=== PATIENT | female | born 1985 | race African-American/Black ===

== ENCOUNTER 2019-11-26 21:57 | Emergency (ER) | payer OTHER, SELFPAY ==
[2019-11-26 22:02] VITALS: BP 126/68; PULSE 86; RESP 16; TEMP 36.6; O2SAT 100
--- NOTE | 2019-11-26 23:47 | ED.NECK ---
HPI - Neck Pain/Injury General Chief Complaint: Neck Pain/Injury Stated Complaint: neck pain Time Seen by Provider: 11/26/19 23:25 Source: patient and RN notes reviewed Mode of arrival: ambulatory Limitations: no limitations History of Present Illness HPI Narrative: Pt is a 34 y/o female presenting to the ED c/o neck pain. Pt reports she woke up this morning with some mild neck pain. Pt states she went to picker her 9 month old son about 30 minutes later and immediately experienced shooting neck pain radiating to her rt shoulder. Pt states she has been taking 800 mg Ibuprofen and applying heat to no effect on her pain. Pt notes she is currently getting over the flu, noting she has nasal congestion. 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 Pt states she smoked 0.5 ppd and also smokes marijuana. Onset (ago): unknown (This morning) Place: home Radiation: right lateral Associated symptoms: none Treatments prior to arrival: ibuprofen Related Data Allergies Allergy/AdvReac Type Severity Reaction Status Date / Time No Known Allergies Allergy Unverified 01/27/19 12:36 Review of Systems Review of Systems: All systems reviewed & are unremarkable except as noted in HPI and below ENT: Reports nasal congestion Musculoskeletal: Musculoskeletal: Reports neck pain (Rt sided radiating to shoulder) PMFSH Past Medical History Medical History Post- depression Surgical History Surgical History H/O tubal ligation Social History Social History Smoking packs per day: 0.5 Smoking cigarettes per day: 10.0 Smoking status: Current every day smoker Substance use: current Substance use type: marijuana Exam Const: General: cooperative, no acute distress and alert Nutritional Appearance: well nourished Orientation/consciousness: patient oriented x3 Limitations: no limitations HENMT: Mouth: Yes lip normal Neck: Neck: tender (Tenderness and spasms of rt sided cervical muscles) Resp: Effort & Inspection: normal respiratory effort Skin: General skin exam: normal color Neuro: General: patient oriented x3 Cognition (Neuro): normal cognition Speech: normal speech Extrem: General: normal to inspection and full ROM Psych: Mental Status: mental status grossly normal Affect: normal affect Attitude: cooperative Course Course Emergency Course: Patient with torticollis. Will prescribe Valium and advised to continue taking ibuprofen. Advised to follow-up with her primary care physician for further care, especially if not improving. Vital Signs Vital signs: Vital Signs Temperature 97.9 F 11/26/19 22:02 Pulse Rate 86 11/26/19 22:02 Respiratory Rate 16 11/26/19 22:02 Blood Pressure 126/68 11/26/19 22:02 Pulse Oximetry 100 11/26/19 22:02 Temperature 97.9 F 11/26/19 22:02 Pulse Rate 74 11/27/19 00:44 Respiratory Rate 18 11/27/19 00:44 Blood Pressure 118/84 11/27/19 00:44 Pulse Oximetry 97 11/27/19 00:44 Critical Care Time Critical Care Time Critical Care Time: No Discharge Plan Discharge Clinical Impression: Torticollis Patient Disposition: Home, Self-Care Condition: Stable Instructions: Spasmodic Torticollis (ED) Additional Instructions: May take acetaminophen 1000 mg every 6 hours as needed for pain. May take your prescription ibuprofen 800 mg every 8 hours as needed for pain. May take Valium as prescribed for muscle spasm. May try heat and/or ice for relief of symptoms. Follow-up with primary care physician for further care. You can discuss referral to physical therapy if symptoms or not improving. Prescriptions: New diazepam 5 mg tablet 5 mg PO Q6-8H PRN (Reason: muscle spasm) Qty: 15 RF: 0 Follow-up/Referrals: UNKNOWN
[2019-11-27 00:44] VITALS: BP 118/84; PULSE 74; RESP 18; O2SAT 97
== END 2019-11-27 00:47 | disposition home or self-care (01) ==
PROVIDERS: Emergency Provider Emergency Medicine
DX: M43.6 Torticollis (principal); F17.210 Nicotine dependence, cigarettes, uncomplicated
CPT/HCPCS: 99283

== ENCOUNTER 2020-05-15 13:47 | Emergency (ER) | payer OTHER, SELFPAY ==
[2020-05-15 13:59] VITALS: BP 125/87; PULSE 84; RESP 16; O2SAT 99
--- NOTE | 2020-05-15 14:17 | ED.SKABFB ---
HPI - Skin/Abscess/Foreign Bdy General Chief complaint: Skin/Abscess/Foreign Body Stated complaint: rash bilateral hands Time Seen by Provider: 05/15/20 14:01 Source: patient and RN notes reviewed Mode of arrival: ambulatory Limitations: no limitations History of Present Illness HPI narrative: Patient presents today with a one-month history of pruritic and severely painful rash to bilateral hands. Left hand is worse than the right. Denies additional symptoms or recent illness. States the rash drain is clear fluid from blisters. She has tried Benadryl cream, Lotrimin, triamcinolone. She has also been wearing plastic gloves to keep moisture in her hands. No new household products. MD complaint: rash Related Data Home Medications Medication Instructions Recorded Confirmed sertraline 50 mg PO DAILY 05/15/20 05/15/20 Allergies Allergy/AdvReac Type Severity Reaction Status Date / Time No Known Allergies Allergy Verified 05/15/20 13:50 Review of Systems Review of Systems: Narrative: CONSTITUTIONAL: Denies body aches, fever, chills, or sweats. EYES: Denies visual changes, redness, or discharge. ENT: Denies rhinorrhea, congestion, sore throat, or otalgia. CARDIOVASCULAR: Denies chest pain, palpitations, or edema. RESPIRATORY: Denies cough or dyspnea. GASTROINTESTINAL: Denies abdominal pain, nausea, vomiting, or diarrhea. GENITOURINARY: Denies dysuria or hematuria. SKIN: + Bilateral hand rash MUSCULOSKELETAL: Denies back pain, joint pain, or myalgia. NEUROLOGIC: Denies headache, numbness, tingling, or weakness. PSYCH: Denies depression or anxiety. [facility] Past Medical History Medical History (Updated 05/15/20 @ 14:24 by Dalia Pierre, [facility], ) Anxiety Post- depression Surgical History Surgical History H/O tubal ligation Social History Social History Smoking packs per day: 0.5 Smoking cigarettes per day: 10.0 Smoking status: Current every day smoker Substance use: current Substance use type: marijuana Gender identity (if verbalized by the patient): Female Comments At time of signature, I have reviewed and agree with nursing past medical, surgical, social and family history unless otherwise noted. Please see nursing chart for further information. There is no relevant family history pertinent to the presenting complaint Exam Narrative: Exam Narrative: GENERAL: Well-appearing, well-nourished, and in no acute distress. HEAD: Normocephalic, atraumatic. EYES: EOMI. No redness or drainage. Conjunctivae normal. ENT: Mucous membranes pink and moist. NECK: Normal AROM. CHEST: No respiratory distress. Clear to auscultation. HEART: Regular rate and rhythm. No murmur appreciated. Normal peripheral pulses. EXTREMITIES: Normal range of motion. No edema. SKIN: Warm, dry. Capillary refill normal. Normal skin turgor. Deep seated painful vesicles, many of which have ruptured at the skin surface and are draining clear fluid. patient has these small vesicles spread circumferentially around most fingers, as well as bilateral palms, left greater than right. No erythema, induration, purulent discharge on either hand or fingers. Distal sensation intact. Capillary refill normal. Full AROM of all fingers. NEURO: No focal deficits. Alert and oriented x3. Gait steady. PSYCH: Normal affect. No signs of depression or anxiety. Course Vital Signs Vital signs: Vital Signs Pulse Rate 84 05/15/20 13:59 Respiratory Rate 16 05/15/20 13:59 Blood Pressure 125/87 05/15/20 13:59 Pulse Oximetry 99 05/15/20 13:59 Pulse Rate 84 05/15/20 13:59 Respiratory Rate 16 05/15/20 13:59 Blood Pressure 125/87 05/15/20 13:59 Pulse Oximetry 99 05/15/20 13:59 Reviewed. Pt has been instructed to follow up with her PCP regarding her elevated blood pressure today. MDM - Skin/Abscess/Foreign Bdy Differenti
== END 2020-05-15 14:23 | disposition home or self-care (01) ==
PROVIDERS: Emergency Provider Nurse Practitioner
DX: L30.1 Dyshidrosis [pompholyx] (principal); F17.210 Nicotine dependence, cigarettes, uncomplicated; F41.9 Anxiety disorder, unspecified; F32.9 Major depressive disorder, single episode, unspecified
CPT/HCPCS: 99213; G0463

== ENCOUNTER 2020-09-09 23:39 | Emergency (ER) | payer OTHER, SELFPAY ==
--- NOTE | ~2020-09-09 | XR_ITS ---
EXAMINATION: XR foot LT min 3V DATE: 09/10/2020 00:56 INDICATION: Left foot pain TECHNIQUE: Dorsoplantar, lateral, and 2 oblique views of the left foot were obtained. COMPARISON: None. FINDINGS: There is no fracture, dislocation, or subluxation. The bones, soft tissues, and joint space s are normal. IMPRESSION: 1. No acute osseous abnormality. Reviewed, dictated and finalized at location A. T TECH
--- NOTE | ~2020-09-09 | XR_ITS ---
EXAMINATION: XR ankle LT min 3V DATE: 09/10/2020 00:56 INDICATION: Left ankle pain TECHNIQUE: Anteroposterior, lateral, mortise, and additional oblique view of the ankle were obtained. COMPARISON: None. FINDINGS: There is no fracture, dislocation, or subluxation. The bones, soft tissues, and joint space s are normal. IMPRESSION: 1. No acute osseous abnormality. Reviewed, dictated and finalized at location A. R ROOM CONTROLLER
[2020-09-09 23:44] VITALS: BP 119/59; PULSE 89; RESP 20; TEMP 36.6; O2SAT 96
[2020-09-10] MEDS: IBUPROFEN 600 MG TABLET PO (00:15)
[2020-09-10] MEDS: HYDROcodone/acetaminophen (*CRX) 5-325 MG TABLET 1 TAB PO (00:58)
--- NOTE | 2020-09-10 01:27 | ED.GENADULT ---
HPI - General Adult General Chief complaint: Extremity Injury, Lower Stated complaint: left ankle injury Time Seen by Provider: 09/10/20 00:04 History of Present Illness HPI narrative: Patient 35-year-old female presents emerged part with chief complaint of left ankle pain. Patient reports you fell while walking down the stairs and tripping over a toy and is one of her children's. Patient states she has pain in the medial malleolus and reports pain in the midfoot as well. Patient denies laceration denies bruising reports that she has pain with putting pressure on her foot. Patient denies pain in her knee denies head injury denies loss of consciousness Related Data Home Medications Medication Instructions Recorded Confirmed sertraline 50 mg PO DAILY 05/15/20 05/15/20 Allergies Allergy/AdvReac Type Severity Reaction Status Date / Time No Known Allergies Allergy Verified 05/15/20 13:50 Review of Systems Review of Systems: Narrative: A 10 system review of systems was completed on the patient and is negative except for what is stated in the HPI. Nursing and ancillary documentation was reviewed. [facility] Past Medical History Medical History Anxiety Post- depression Surgical History Surgical History H/O tubal ligation Social History Social History Smoking packs per day: 0.5 Smoking cigarettes per day: 10.0 Smoking status: Current every day smoker Substance use: current Substance use type: marijuana Gender identity (if verbalized by the patient): Female Exam Narrative: Exam Narrative: GENERAL: Well-appearing, well-nourished, and in no acute distress. HEAD: Normocephalic, atraumatic. EYES: PERRLA and EOMI. ENT: Nares clear, no rhinorrhea or epistaxis. Mucous membranes moist. NECK: Supple. CHEST: Clear to auscultation. No respiratory distress. HEART: Regular rate and rhythm. No murmur heard. Normal peripheral pulses. ABDOMEN: Soft, nontender, nondistended, normal active bowel sounds. EXTREMITIES: Normal range of motion. No edema. There is tenderness to palpation of the left ankle with bilateral malleolus and the midfoot. SKIN: Warm, dry, no rash. NEURO: No focal deficits. Alert and oriented x3. PSYCH: Normal mood and affect. Course Course Emergency Course: Plain film x-rays of the left ankle and foot showed no evidence of acute fracture. Vital Signs Vital signs: Vital Signs Temperature 36.6 C 09/09/20 23:44 Pulse Rate 89 09/09/20 23:44 Respiratory Rate 20 09/09/20 23:44 Blood Pressure 119/59 L 09/09/20 23:44 Pulse Oximetry 96 09/09/20 23:44 Temperature 36.6 C 09/09/20 23:44 Pulse Rate 89 09/09/20 23:44 Respiratory Rate 20 09/09/20 23:44 Blood Pressure 119/59 L 09/09/20 23:44 Pulse Oximetry 96 09/09/20 23:44 Medical Decision Making Vital Signs Vital Signs: Vital Signs Temperature 36.6 C 09/09/20 23:44 Pulse Rate 89 09/09/20 23:44 Respiratory Rate 20 09/09/20 23:44 Blood Pressure 119/59 L 09/09/20 23:44 Pulse Oximetry 96 09/09/20 23:44 Temperature 36.6 C 09/09/20 23:44 Pulse Rate 89 09/09/20 23:44 Respiratory Rate 20 09/09/20 23:44 Blood Pressure 119/59 L 09/09/20 23:44 Pulse Oximetry 96 09/09/20 23:44 Discharge Plan Discharge Clinical Impression: Ankle sprain and strain Patient Disposition: Home, Self-Care Condition: Stable Instructions: Antibiotic Form, Ankle Sprain (ED), Crutch Instructions (ED) Prescriptions: New ibuprofen 800 mg tablet 800 mg PO TID PRN (Reason: pain) Qty: 30 RF: 0 No Action betamethasone dipropionate 0.05 % cream 1 applic TOPICAL BID PRN (Reason: rash) Qty: 45 RF: 0 sertraline 50 mg Tablet 50 mg PO DAILY RF: 0 Follow-up/Referrals: PHYSICIAN,EXECUTIVE ADVISOR [Primary C
[2020-09-10 02:09] VITALS: BP 116/83; PULSE 84; RESP 18; O2SAT 97
== END 2020-09-10 02:11 | disposition home or self-care (01) ==
PROVIDERS: Emergency Provider Emergency Medicine
DX: S93.402A Sprain of unspecified ligament of left ankle, initial encounter (principal); S96.912A Strain of unspecified muscle and tendon at ankle and foot level, left foot, initial encounter; F41.9 Anxiety disorder, unspecified; F17.210 Nicotine dependence, cigarettes, uncomplicated; W10.9XXA Fall (on) (from) unspecified stairs and steps, initial encounter
CPT/HCPCS: 29515; 73610; 73630; 99283; A9270

== ENCOUNTER 2020-10-21 14:07 | Emergency (ER) | payer OTHER, SELFPAY ==
--- NOTE | 2020-10-21 14:16 | ED.GENADULT ---
HPI - General Adult General Chief complaint: Skin/Abscess/Foreign Body Stated complaint: infected right 1st digit toe Time Seen by Provider: 10/21/20 14:16 Source: patient Mode of arrival: ambulatory Limitations: no limitations History of Present Illness HPI narrative: 35-year-old female patient presents to the [facility] with complaints of a wound and pain to the right great toe for the past week. Patient states she has had ingrown toenails before and thinks that she got has another ingrown toenail. Patient states she has been soaking in Epson salt soaks as well as putting it Neosporin on it and wrapping it at night. Patient states it continues to get just a little bit bigger and is throbbing. Denies any fevers, body aches or chills. Related Data Home Medications Medication Instructions Recorded Confirmed sertraline 50 mg PO DAILY 05/15/20 05/15/20 Allergies Allergy/AdvReac Type Severity Reaction Status Date / Time No Known Allergies Allergy Verified 05/15/20 13:50 Review of Systems Review of Systems: Narrative: CONSTITUTIONAL: Denies fever, chills, or sweats. EYES: Denies visual changes, redness, or discharge. ENT: Denies rhinorrhea, congestion, sore throat, or otalgia. CARDIOVASCULAR: Denies chest pain, palpitations, or edema. RESPIRATORY: Denies cough or dyspnea. GASTROINTESTINAL: Denies abdominal pain, nausea, vomiting, or diarrhea. GENITOURINARY: Denies dysuria or hematuria. SKIN: Denies rash or itching. Positive wound to right great toe x1 week MUSCULOSKELETAL: Denies back pain, joint pain, or myalgia. NEUROLOGIC: Denies headache, numbness, or weakness. PSYCHIATRIC: Denies anxiety or depression. [facility] Past Medical History Medical History Anxiety Post- depression Surgical History Surgical History H/O tubal ligation Social History Social History Smoking packs per day: 0.5 Smoking cigarettes per day: 10.0 Smoking status: Current every day smoker Substance use: current Substance use type: marijuana Gender identity (if verbalized by the patient): Female Comments At the time of my signature I agree with nursing past medical history, surgical, social, and family history. There is no relevant family history pertinent to the presenting complaint. Exam Narrative: Exam Narrative: GENERAL: Well-appearing, well-nourished, and in no acute distress. HEAD: Normocephalic, atraumatic. EYES: PERRLA and EOMI. ENT: Nares clear, no rhinorrhea or epistaxis. Mucous membranes moist. NECK: Supple. No lymphadenopathy CHEST: Clear to auscultation. No respiratory distress. HEART: Regular rate and rhythm. No murmur heard. Normal peripheral pulses. ABDOMEN: Soft, nontender, nondistended, normal active bowel sounds. EXTREMITIES: Normal range of motion. No edema. SKIN: Warm, dry, no rash. Patient has what appears to be an ingrown toenail to the right great toe. She has swelling around the nailbed along with tenderness and some redness. No active draining at this time. NEURO: No focal deficits. Alert and oriented x3. Course Vital Signs Vital signs: Vital Signs Temperature 36.2 C L 10/21/20 14:28 Pulse Rate 92 10/21/20 14:28 Respiratory Rate 16 10/21/20 14:28 Blood Pressure 101/58 L 10/21/20 14:28 Pulse Oximetry 99 10/21/20 14:28 Temperature 36.2 C L 10/21/20 14:28 Pulse Rate 92 10/21/20 14:28 Respiratory Rate 16 10/21/20 14:28 Blood Pressure 101/58 L 10/21/20 14:28 Pulse Oximetry 99 10/21/20 14:28 Vital signs reviewed Procedures Other Procedure Procedure 1: Other Procedure: Topical let was placed on right great toe and let sit for about 10 to 15 minutes. The toe was cleaned with Betadine swabs and an 18-gauge needle was used to small pocket of pus under the nail of the right great toe. Allyssa john
[2020-10-21 14:28] VITALS: BP 101/58; PULSE 92; RESP 16; TEMP 36.2; O2SAT 99
== END 2020-10-21 15:04 | disposition home or self-care (01) ==
PROVIDERS: Emergency Provider Nurse Practitioner Family
DX: L03.031 Cellulitis of right toe (principal); F17.210 Nicotine dependence, cigarettes, uncomplicated; F41.9 Anxiety disorder, unspecified
CPT/HCPCS: 10060; 99213; G0463

== ENCOUNTER 2022-01-26 16:50 | Emergency (ER) | payer BC, OTHER, SELFPAY ==
[2022-01-26 17:08] VITALS: BP 108/65; PULSE 87; RESP 16; TEMP 37.5; O2SAT 100
[2022-01-26 17:27] LABS: Basophils Percent Auto 0.3 % (0.2-1.2); Hematocrit 40.9 % (37.0-47.0); Hemoglobin 13.3 g/dL (12.0-15.0); Immature Granulocyte Absolute 0.02 K/mm3 (0.00-0.031); Immature Granulocyte Percent A 0.3 % (0-0.5); Lymphocytes Absolute Auto 0.32 K/mm3 (0.9-3.2); Lymphocytes Percent Auto 4.2 % (18.3-44.2); Mean Corpuscular HGB Conc 32.5 g/dl (32-36); Mean Corpuscular Hemoglobin 28.9 pg (26-34); Mean Corpuscular Volume 88.9 fl (80-100); Monocytes Percent Auto 13.2 % (2.6-8.5); Neutrophils Absolute Auto 6.2 K/mm3 (1.3-6.7); Platelet Count Result 160 k/mm3 (150-375); Red Cell Distribution Width 13.4 % (11.5-14.5); White Blood Count 7.6 K/mm3 (4.5-10.0)
[2022-01-26 17:39] LABS: Appearance Urine Clear (Clear); Bilirubin Urine Negative (Negative); Blood Urine Negative (Negative); Color Urine Yellow (Yellow); Glucose Urine UA Negative (Negative); Ketones Urine Trace mg/dL (Negative); Leukocyte Esterase Ur Negative LEU/UL (Negative); Nitrate Urine Negative (Negative); Protein Urine 1+ mg/dL (Negative); Specific Grav Ur >= 1.030 (1.001-1.035); pH Urine 6.5 (5.0-9.0)
[2022-01-26 17:40] LABS: Alanine Aminotransferase 11 U/L (6-35); Albumin Level 4.4 g/dL (3.5-5.1); Alkaline Phosphatase 68 U/L (38-126); Anion Gap 7 mmol/L (8-16); Aspartate Amino Transferase 26 U/L (14-36); Bilirubin,Total 0.2 mg/dL (0.2-1.3); Blood Urea Nitrogen 13 mg/dL (7-17); Calcium 9.1 mg/dL (8.4-10.2); Carbon Dioxide 29 mmol/L (22-30); Chloride 102 mmol/L (98-107); Estimated CRCL calculation 65 ml/min; Estimated Glomerular Filt Rate > 60; Glucose 101 mg/dL (65-110); Lipase 48 U/L (23-300); Potassium 3.8 mmol/L (3.4-5.0); Sodium 138 mmol/L (137-145)
[2022-01-26 17:44] LABS: Bacteria Urine Trace /hpf; Mucus Urine Few /lpf; Squamous Epithelial Cell Urine Many /hpf (Few)
--- NOTE | 2022-01-26 17:48 | ED.GENADULT ---
HPI - General Adult General Chief complaint: Nausea/Vomiting/Diarrhea Stated complaint: fever,nausea/vomiting Time Seen by Provider: 01/26/22 17:36 Source: patient, family and RN notes reviewed Mode of arrival: ambulatory Limitations: no limitations and clinical condition History of Present Illness HPI narrative: Patient 36 years old -Italian female presents with sudden onset of body aches, chills, fever, vomiting not feeling well and started last night. Patient reported that her little kids had similar symptoms a few days ago. Patient did not get vaccinated for COVID or influenza. Related Data Allergies Allergy/AdvReac Type Severity Reaction Status Date / Time No Known Allergies Allergy Verified 05/15/20 13:50 Review of Systems Review of Systems: All systems reviewed & are unremarkable except as noted in HPI and below PMFSH Past Medical History Medical History Anxiety Post- depression Surgical History Surgical History H/O tubal ligation Social History Social History Smoking packs per day: 0.5 Smoking cigarettes per day: 10.0 Smoking status: Current every day smoker Substance use: current Substance use type: marijuana Gender identity (if verbalized by the patient): Female Exam Narrative: General appearance: Well-developed, well-nourished Skin: Normal color Head: Normocephalic, nontraumatic Eyes: Clear conjunctiva ENT: Oropharynx normal, ears normal, nose normal Neck: Supple, nontender Chest and respiratory: Airway patent, no respiratory distress, no accessory muscle use Heart: Regular rate/rhythm Abdomen: Soft, nontender, no organomegaly, quiet bowel sounds Vascular: Normal peripheral pulses, normal capillary refill. Musculoskeletal: Normal range of motion, nontender back Neurologic: Alert and oriented ?3, STRUCTURAL DRAFTER is normal as tested, no gross motor deficit Course Course Emergency Course: Patient's symptoms started yesterday, a prescription of Tamiflu was given. Her at the bedside who is asymptomatic, received a prescription of Tamiflu 75 mg once a day for the next 10 days. Vital Signs Vital signs: Vital Signs Temperature 37.5 C 01/26/22 17:08 Pulse Rate 87 01/26/22 17:08 Respiratory Rate 16 01/26/22 17:08 Blood Pressure 108/65 01/26/22 17:08 Pulse Oximetry 100 01/26/22 17:08 Temperature 37.5 C 01/26/22 17:08 Pulse Rate 87 01/26/22 17:08 Respiratory Rate 16 01/26/22 17:08 Blood Pressure 108/65 01/26/22 17:08 Pulse Oximetry 100 01/26/22 17:08 Medical Decision Making MDM Narrative Medical decision making narrative: Respiratory viral infection is my concern. Differential Diagnosis Differential Diagnosis: COVID, influenza, other respiratory viral infection Vital Signs Vital Signs: Vital Signs Temperature 37.5 C 01/26/22 17:08 Pulse Rate 87 01/26/22 17:08 Respiratory Rate 16 01/26/22 17:08 Blood Pressure 108/65 01/26/22 17:08 Pulse Oximetry 100 01/26/22 17:08 Temperature 37.5 C 01/26/22 17:08 Pulse Rate 87 01/26/22 17:08 Respiratory Rate 16 01/26/22 17:08 Blood Pressure 108/65 01/26/22 17:08 Pulse Oximetry 100 01/26/22 17:08 Lab Data Result diagrams: 01/26/22 17:15 01/26/22 17:15 Labs: Lab Results 01/26/22 01/26/22 01/26/22 Range/Units 17:15 17:15 17:32 WBC 7.6 (4.5-10.0) K/mm3 RBC 4.60 (4.2-5.4) M/mm3 Hgb 13.3 (12.0-15.0) g/dL Hct 40.9 (37.0-47.0) % MCV 88.9 (80-100) fl MCH 28.9 (26-34) pg
[2022-01-26 17:50] LABS: Add Urine Microscopic? YES
[2022-01-26 18:00] VITALS: BP 112/78; PULSE 77; RESP 16; O2SAT 98
== END 2022-01-26 18:01 | disposition home or self-care (01) ==
LOC: ANHED 17:52
PROVIDERS: Emergency Medicine; Emergency Provider Emergency Medicine
DX: J10.1 Influenza due to other identified influenza virus with other respiratory manifestations (principal); Z28.310 Unvaccinated for COVID-19; F17.210 Nicotine dependence, cigarettes, uncomplicated
CPT/HCPCS: 36415; 80053; 81001; 81025; 83690; 85025; 87804; 99283

== ENCOUNTER 2022-10-28 19:24 | Emergency (ER) | payer BC, OTHER, SELFPAY ==
--- NOTE | 2022-10-28 19:36 | ED.URI ---
HPI - URI/Sore Throat General Chief Complaint: Upper Respiratory Infection Stated Complaint: sore throat History of Present Illness HPI Narrative: 37 y/o female presented for c/o sore throat, onset last night. Endorses son also developed a sore throat last night. Denies sinus congestion, shortness of breath, wheezing, nausea, vomiting, fevers or chills. She has taken NyQuil for symptoms. Related Data Allergies Allergy/AdvReac Type Severity Reaction Status Date / Time No Known Allergies Allergy Verified 10/28/22 19:37 Review of Systems Review of Systems: CONSTITUTIONAL: Denies body aches, fever, chills, or sweats. EYES: Denies visual changes, redness, or discharge. ENT: Denies rhinorrhea, congestion, or otalgia. CARDIOVASCULAR: Denies chest pain, palpitations, or edema. RESPIRATORY: Denies dyspnea. GASTROINTESTINAL: Denies abdominal pain, nausea, vomiting, or diarrhea. SKIN: Denies rash, itching, or wounds. MUSCULOSKELETAL: Denies back pain, joint pain, or myalgia. NEUROLOGIC: Denies headache PMFSH Past Medical History Medical History Anxiety Post- depression Surgical History Surgical History H/O tubal ligation Social History Social History Smoking packs per day: 0.5 Smoking cigarettes per day: 10.0 Smoking status: Current every day smoker Substance use: current Substance use type: marijuana Gender identity (if verbalized by the patient): Female Exam Narrative: GENERAL: Mildly Ill-appearing, no acute distress. EYES: conjunctivae clear ENT: Mucous membranes moist. TM pearly lopez with normal light reflex bilaterally; no tragal tenderness. Oropharynx erythematous Tonsils enlarged 2+ with exudate. No drooling, no hoarseness, no trismus, uvula midline. No tripod positioning, hot potato voice, or soft palate swelling. NECK: Supple. bilateral anterior cervical lymphadenopathy CHEST: Clear to auscultation, breath sounds equal. No respiratory distress, speaks in full sentences. HEART: Regular rate and rhythm. No murmur heard. SKIN: Warm, dry, no rash. NEURO: Alert and oriented x3. Course Course Emergency Course: Patient is aware of diagnosis, understands and agrees to treatment plan. Anticipatory guidance given. Patient agrees to follow-up as directed and is aware of reasons to seek care at the emergency department. Portions of this record may have been created with voice recognition software Level of Care: Express Care Visit Vital Signs Vital signs: Vital Signs Temperature 98.4 F 10/28/22 19:38 Pulse Rate 82 10/28/22 19:38 Respiratory Rate 16 10/28/22 19:38 Blood Pressure 106/62 10/28/22 19:38 Pulse Oximetry 100 10/28/22 19:38 Oxygen Delivery Room Air 10/28/22 19:38 Temperature 98.4 F 10/28/22 19:38 Pulse Rate 82 10/28/22 19:38 Respiratory Rate 16 10/28/22 19:38 Blood Pressure 106/62 10/28/22 19:38 Pulse Oximetry 100 10/28/22 19:38 Oxygen Delivery Room Air 10/28/22 19:38 MDM - URI/Sore Throat MDM Narrative Medical decision making narrative: strep result reviewed with pt. Advise supportive treatments. Patient is appropriate for outpatient treatment and follow-up. Differential Diagnosis Differential diagnosis: Likely upper respiratory infection, viral infection and pharyngitis Lab Data Labs: Strep Screen Positive Group A Strep *(Reference Range: Negative)* Discharge Plan Discharge Clinical Impression: Strep pharyngitis Patient Disposition: Home, Self-Care Condition: Stable Instructions: Antibiotic Form, Strep Throat (ED) Additional Instructions: - Take the antibiotic as directed. Fever and sore throat typically resolve within one to three days. Most patients can return to work afte
[2022-10-28 19:38] VITALS: BP 106/62; PULSE 82; RESP 16; TEMP 36.9; O2SAT 100
== END 2022-10-28 19:59 | disposition home or self-care (01) ==
PROVIDERS: Emergency Provider Nurse Practitioner Family
DX: J02.0 Streptococcal pharyngitis (principal); F17.210 Nicotine dependence, cigarettes, uncomplicated; F12.90 Cannabis use, unspecified, uncomplicated
CPT/HCPCS: 87880; 99213; G0463

== ENCOUNTER 2022-12-06 22:00 | Emergency (ER) | payer BC, OTHER, SELFPAY ==
[2022-12-06 22:07] VITALS: BP 116/73; PULSE 78; RESP 22; TEMP 37; O2SAT 100
--- NOTE | 2022-12-06 22:54 | PC.NURSE ---
Patient approached the intake desk and informed stated, My son had an asthma attack and I need you to take this out of my arm so I can leave . Solid Waste Collection Worker made patient aware of risk of leaving and benefits of staying. Patient still requested to leave. Solid Waste Collection Worker discontinued patient's IV access and patient alert and ambulatory upon leaving the ED.
== END 2022-12-07 00:21 | disposition left against medical advice (07) ==
LOC: ANHED 23:02
DX: R05.9 Cough, unspecified (principal)
CPT/HCPCS: 99199

== ENCOUNTER 2023-06-12 11:35 | Emergency (ER) | payer BC, OTHER, SELFPAY ==
--- NOTE | 2023-06-12 11:47 | PC.NURSE ---
in br to obtain ua spec.
[2023-06-12 11:48] VITALS: BP 96/55; PULSE 74; RESP 16; TEMP 36.9; O2SAT 100
--- NOTE | 2023-06-12 11:59 | ED.FEMALEGU ---
HPI - Female Genitourinary General Chief complaint: Urogenital-Female Stated complaint: urinary issue Source: patient and RN notes reviewed Mode of arrival: ambulatory Limitations: no limitations History of Present Illness HPI Narrative: 37 y/o female presented with c/o burning with urination, frequency, urgency, and suprapubic pressure radiating to left flank area. Reports a sharp pain when starting to void. Onset 3 days. Symptoms worsened last night. Endorses cloudy urine with strong odor today, also with nausea. denies hematuria, vaginal discharge, vomiting, diarrhea, fevers or chills. Not taking anything for symptoms. LMP 06/01/23. Denies concern for STD. Related Data Allergies Allergy/AdvReac Type Severity Reaction Status Date / Time No Known Allergies Allergy Verified 12/06/22 22:01 Review of Systems Review of Systems: CONSTITUTIONAL: Denies body aches, fever, chills, or sweats. CARDIOVASCULAR: Denies chest pain, palpitations, or edema. RESPIRATORY: Denies cough or dyspnea. GASTROINTESTINAL: Denies abdominal pain, nausea, vomiting, or diarrhea. GENITOURINARY: Reports dysuria, frequency, urgency, left flank pain SKIN: Denies rash, itching, or wounds. MUSCULOSKELETAL: Denies back pain or myalgia. [facility] Past Medical History Medical History Anxiety Post- depression Surgical History Surgical History H/O tubal ligation Social History Social History Smoking packs per day: 0.5 Smoking cigarettes per day: 10.0 Smoking status: Current every day smoker Substance use: current Substance use type: marijuana Gender identity (if verbalized by the patient): Female Comments At time of signature, I have reviewed and agree with nursing past medical, surgical, social and family history unless otherwise noted. Please see nursing chart for further information. There is no relevant family history pertinent to the presenting complaint Exam Narrative: GENERAL: mildly ill-appearing, nontoxic, in no acute distress. HEAD: Normocephalic EYES: EOMI. . ENT: Mucous membranes pink and moist. NECK: Normal AROM. Supple. CHEST: No respiratory distress. Clear to auscultation. HEART: Regular rate and rhythm. ABDOMEN: Soft, nondistended, normal active bowel sounds. Left CVA tenderness, LLQ tenderness. No guarding or rigidity, no pulsatile mass. SKIN: Warm, dry, no rash. NEURO: No focal deficits. Alert and oriented x3. Gait steady. PSYCH: Normal affect. Course Course Emergency Course: Patient is aware of diagnosis, understands and agrees to treatment plan. Anticipatory guidance given. Patient agrees to follow-up as directed and is aware of reasons to seek care at the emergency department. Portions of this record may have been created with voice recognition software Level of Care: Express Care Visit Vital Signs Vital signs: Vital Signs Temperature 98.5 F 06/12/23 11:48 Pulse Rate 74 06/12/23 11:48 Respiratory Rate 16 06/12/23 11:48 Blood Pressure 96/55 L 06/12/23 11:48 Pulse Oximetry 100 06/12/23 11:48 Oxygen Delivery Room Air 06/12/23 11:48 Temperature 98.5 F 06/12/23 11:48 Pulse Rate 74 06/12/23 11:48 Respiratory Rate 16 06/12/23 11:48 Blood Pressure 96/55 L 06/12/23 11:48 Pulse Oximetry 100 06/12/23 11:48 Oxygen Delivery Room Air 06/12/23 11:48 Reviewed MDM - Female Genitourinary MDM Narrative Medical decision making narrative: results of urine reviewed with patient. Discussed physical exam findings, suspicion for pyelonephritis, Advised supportive measures and signs/symptoms to go to the ER. Pt is appropriate for outpt treatment and f/u. Differential Diagnosis Differential diagnosis: Likely urinary tract infection, cystitis and other (nephrolithiasis, pyelonephritis) Lab Data L
== END 2023-06-12 12:20 | disposition home or self-care (01) ==
PROVIDERS: Emergency Provider Nurse Practitioner Family
DX: N39.0 Urinary tract infection, site not specified (principal); F17.210 Nicotine dependence, cigarettes, uncomplicated; F12.90 Cannabis use, unspecified, uncomplicated
CPT/HCPCS: 81003; 87077; 87086; 87088; 87186; 99213; G0463

== ENCOUNTER 2023-07-09 10:47 | Emergency (ER) | payer BC, OTHER, SELFPAY ==
--- NOTE | ~2023-07-09 | XR_ITS ---
XR ankle LT min 3V DATE: 07/09/2023 12:10 INDICATION: Fall. Twisted ankle. Medial and lateral pain. TECHNIQUE: 4 views COMPARISON: 09/10/2020 left ankle FINDINGS: No soft tissue swelling, fracture, dislocation or disruption of the ankle mortise. IMPRESSION: Negative Reviewed, dictated and finalized at location L. IMPRESSION: Negative
--- NOTE | 2023-07-09 10:49 | ED.LOWEXIN ---
HPI - Extremity Injury (Lower) General Chief Complaint: Extremity Injury, Lower Stated Complaint: Left Ankle Pain Time Seen by Provider: 07/09/23 10:49 Source: patient Mode of arrival: ambulatory Limitations: no limitations History of Present Illness HPI Narrative: Patient is a 37-year-old female who presents with left lateral ankle pain after falling down the last 3 steps yesterday. Patient has been taking ibuprofen with moderate relief. Patient has been able to ambulate with a limp. Denies hitting her head on fall. Denies any numbness or tingling to foot. Denies any swelling to area. Related Data Home Medications Medication Instructions Recorded Confirmed No Home Medications 07/09/23 07/09/23 Allergies Allergy/AdvReac Type Severity Reaction Status Date / Time No Known Allergies Allergy Verified 07/09/23 10:57 Review of Systems Review of Systems: All systems reviewed & are unremarkable except as noted in HPI and below Constitutional: Constitutional: Denies body ache(s), Denies chills, Denies fatigue, Denies fever(s), Denies headache(s), Denies malaise and Denies weakness Eyes: Eyes: Denies blurry vision, Denies irritation and Denies loss of vision ENT: Denies otalgia, Denies headache(s), Denies nasal discharge, Denies sinus pain and Denies sore throat Cardiovascular: Cardiovascular: Denies chest pain, Denies irregular heart rhythm and Denies dyspnea Respiratory: Respiratory: Denies dyspnea Gastrointestinal: Gastrointestinal: Denies abdominal pain, Denies melena, Denies hematochezia, Denies diarrhea, Denies nausea and Denies vomiting Musculoskeletal: Musculoskeletal: Denies back pain, Denies myalgias and Reports arthralgias Integumentary/Breasts: Skin/Breast: Denies pruritus and Denies rash Neurologic: Denies headache(s), Denies loss of vision and Denies weakness Psychiatric: Psychiatric: Reports no additional psychiatric complaints Endocrine: Endocrine: Denies fatigue PMFSH Past Medical History Medical History Anxiety Post- depression Surgical History Surgical History H/O tubal ligation Social History Social History Smoking packs per day: 0.5 Smoking cigarettes per day: 10.0 Smoking status: Current every day smoker Substance use: current Substance use type: marijuana Gender identity (if verbalized by the patient): Female Comments At time of signature, agree with nursing past medical, surgical, social and family history. There is no relevant family history pertinent to the presenting complaint. Exam Const: General: cooperative, healthy appearing, comfortable, no acute distress and well nourished Nutritional Appearance: well nourished Orientation/consciousness: patient oriented x3 Limitations: no limitations HENMT: Head: normal to inspection, normocephalic and atraumatic Ears: hearing grossly normal bilaterally and external ears normal Face/Nose/Sinus: Normal external nose present, normal facial exam and face symmetric Face and sinus: normal facial exam and face symmetric Mouth: Yes lip normal Eyes: General: appearance normal, both eyes and all related structures Alignment and Position: alignment normal and position normal Periorbital: periorbital findings normal Eyelids: eyelids normal Pupils: Equal, round and reactive pupils present EOM: EOMs intact bilaterally Neck: Neck: normal visual inspection, full ROM and supple Chest: Chest palpation & inspection: normal inspection of the chest Resp: Effort & Inspection: normal respiratory effort and able to speak in complete sentences Auscultation: clear to auscultation bilaterally Cardio: Rate: regular rate Rhythm: regular rhythm Heart sounds: S1 normal heart sound present and S2 normal heart sound present GI: Inspection: normal to inspection Ski
[2023-07-09 10:57] VITALS: BP 97/66; PULSE 72; RESP 16; TEMP 36.4; O2SAT 100
== END 2023-07-09 12:29 | disposition home or self-care (01) ==
PROVIDERS: Emergency Provider Nurse Practitioner Family; PCP Emergency Medicine
DX: S93.402A Sprain of unspecified ligament of left ankle, initial encounter (principal); S96.912A Strain of unspecified muscle and tendon at ankle and foot level, left foot, initial encounter; W10.9XXA Fall (on) (from) unspecified stairs and steps, initial encounter; F17.210 Nicotine dependence, cigarettes, uncomplicated; F12.90 Cannabis use, unspecified, uncomplicated
CPT/HCPCS: 73610; 99213; G0463

== ENCOUNTER 2023-08-02 01:08 | Emergency (ER) | payer BC, OTHER, SELFPAY ==
--- NOTE | ~2023-08-02 | XR_ITS ---
EXAMINATION: XR foot RT min 3V DATE: 08/02/2023 02:35 INDICATION: Right foot pain. Injury. TECHNIQUE: 4 views of right foot were obtained. COMPARISON: None. FINDINGS: Bone alignment is normal. No fracture. Joint spaces are normal. IMPRESSION: 1. No fracture. Reviewed, dictated and finalized at location E. UP OPERATOR TOOL IMPRESSION: 1. No fracture.
--- NOTE | ~2023-08-02 | XR_ITS ---
EXAMINATION: XR ankle RT min 3V DATE: 08/02/2023 02:35 INDICATION: Right ankle pain. TECHNIQUE: 4 views of right ankle were obtained. COMPARISON: None. FINDINGS: Bone alignment is normal. No fracture. There is mild osteoarthritis of talonavicular joint. There is ankle soft tissue swelling. IMPRESSION: 1. Mild osteoarthritis of talonavicular joint. Reviewed, dictated and finalized at location E. GIOUS EDUCATION TEACHER
[2023-08-02 01:19] VITALS: BP 107/70; PULSE 85; RESP 16; TEMP 36.4; O2SAT 100
--- NOTE | 2023-08-02 02:45 | ED.LOWEXIN ---
HPI - Extremity Injury (Lower) General Chief Complaint: Extremity Injury, Lower Stated Complaint: R ankle injury Time Seen by Provider: 08/02/23 02:13 Source: patient Mode of arrival: ambulatory Limitations: no limitations History of Present Illness HPI Narrative: Patient is a 37 y/o female who presents to the ED with c/o the right foot and ankle pain. Patient reports she tripped over the threshold of her door earlier today and rolled her right ankle and foot. She states she had several ?pops. She was able to ambulate afterwards, but has since developed worsening pain throughout the day. Pain worse with bearing weight. She tried taking ibuprofen around 9:00 p.m. without improvement. Denies numbness or tingling. No other injuries. Related Data Home Medications Medication Instructions Recorded Confirmed No Home Medications 07/09/23 07/09/23 Allergies Allergy/AdvReac Type Severity Reaction Status Date / Time No Known Allergies Allergy Verified 08/02/23 02:50 Review of Systems Review of Systems: CONSTITUTIONAL: Denies fever, chills, or sweats. MUSCULOSKELETAL: See HPI. NEUROLOGIC: Denies tingling, numbness, or weakness. All systems reviewed & are unremarkable except as noted in HPI and below PMFSH Past Medical History Medical History Anxiety Post- depression Surgical History Surgical History H/O tubal ligation Social History Social History Smoking packs per day: 0.5 Smoking cigarettes per day: 10.0 Smoking status: Current every day smoker Substance use: current Substance use type: marijuana Gender identity (if verbalized by the patient): Female Exam Narrative: GENERAL: Well appearing, well-nourished, non-toxic, in no acute distress. HEAD: Normocephalic, atraumatic. NECK: Supple. No adenopathy, no masses. RESPIRATORY: Airway patent, respirations nonlabored. CARDIOVASCULAR: Regular rate and rhythm without murmurs, rubs, or gallops. Pedal pulses 2+ and equal bilaterally. MUSCULOSKELETAL: Moves all extremities. No gross deformities. TTP along R anterolateral ankle/foot. No significant swelling noted. Sensation intact. Able to wiggle toes. SKIN: Warm, dry, normal color. No rashes. NEURO: A&O X3. Speech clear. Cranial nerves II-XII grossly intact. No ataxic movements. PSYCHIATRIC: Appropriate mood and affect. Normal interaction. Course Vital Signs Vital signs: Vital Signs Temperature 97.5 F L 08/02/23 01:19 Pulse Rate 85 08/02/23 01:19 Respiratory Rate 16 08/02/23 01:19 Blood Pressure 107/70 08/02/23 01:19 Pulse Oximetry 100 08/02/23 01:19 Oxygen Delivery Room Air 08/02/23 01:19 Temperature 97.5 F L 08/02/23 01:19 Pulse Rate 85 08/02/23 01:19 Respiratory Rate 16 08/02/23 01:19 Blood Pressure 107/70 08/02/23 01:19 Pulse Oximetry 100 08/02/23 01:19 Oxygen Delivery Room Air 08/02/23 01:19 MDM - Extremity Injury (Lower) MDM Narrative Medical decision making narrative: Patient's injury is consistent with musculoskeletal etiology. No signs of neurologic or vascular compromise on physical examination. Compartments are soft without signs of compartment syndrome. XR R ankle and foot interpreted by myself w/o osseous abnormality. Pain is consistent with exam and injury, consistent with ankle sprain. Patient is felt to be stable for discharge home and further outpatient management and treatment. Given Edgar bandage in the ED, crutches, discussed RICE therapy. Given return precautions. Discharged in stable condition. Medical Records Attestation: I reviewed the patient's medical records. Imaging Data Attestation: I personally reviewed and interpreted this imaging study as follows: My impression: XR R foot: No acute osseous abnormality. XR R ankle: No ac
[2023-08-02] MEDS: KETOROLAC (*BKC) 60 MG/2 ML VIAL IM (03:10)
[2023-08-02] MEDS: ACETAMINOPHEN 500 MG TABLET 1000 MG PO (03:11)
== END 2023-08-02 03:17 | disposition home or self-care (01) ==
PROVIDERS: Emergency Provider Physician Assistant; PCP Emergency Medicine
DX: S93.401A Sprain of unspecified ligament of right ankle, initial encounter (principal); F17.210 Nicotine dependence, cigarettes, uncomplicated; W18.49XA Other slipping, tripping and stumbling without falling, initial encounter; X50.9XXA Other and unspecified overexertion or strenuous movements or postures, initial encounter
CPT/HCPCS: 73610; 73630; 96372; 99283; A9270; J1885

== ENCOUNTER 2024-03-16 14:10 | Emergency (ER) | payer BC, OTHER, SELFPAY ==
[2024-03-16 14:21] VITALS: BP 87/52; PULSE 70; RESP 14; TEMP 36.4; O2SAT 100
--- NOTE | 2024-03-16 14:48 | ED.FEMALEGU ---
HPI - Female Genitourinary General Chief complaint: Urogenital-Female Stated complaint: Urinary Problems Time Seen by Provider: 03/16/24 14:44 Source: patient and RN notes reviewed Mode of arrival: ambulatory Limitations: no limitations History of Present Illness HPI Narrative: Patient presents today complaining of malodorous urine and incomplete bladder emptying since last night. Symptoms worsened this morning. Denies dysuria, hematuria, frequency. No recent antibiotic use. Related Data Allergies Allergy/AdvReac Type Severity Reaction Status Date / Time No Known Allergies Allergy Verified 03/16/24 14:22 Review of Systems Review of Systems: CONSTITUTIONAL: Denies body aches, fever, chills, or sweats. EYES: Denies visual changes, redness, or discharge. ENT: Denies rhinorrhea, congestion, sore throat, or otalgia. CARDIOVASCULAR: Denies chest pain, palpitations, or edema. RESPIRATORY: Denies cough or dyspnea. GASTROINTESTINAL: Denies abdominal pain, nausea, vomiting, or diarrhea. GENITOURINARY: Denies dysuria or hematuria. + malodorous urine, incomplete bladder emptying SKIN: Denies rash, itching, or wounds. MUSCULOSKELETAL: Denies back pain, joint pain, or myalgia. NEUROLOGIC: Denies headache, numbness, tingling, or weakness. PSYCH: Denies depression or anxiety. PMFSH Past Medical History Medical History Anxiety Post- depression Surgical History Surgical History H/O tubal ligation Social History Social History Smoking packs per day: 0.5 Smoking cigarettes per day: 10.0 Smoking status: Current every day smoker Substance use: current Substance use type: marijuana Gender identity (if verbalized by the patient): Female Comments At time of signature, I have reviewed and agree with nursing past medical, surgical, social and family history unless otherwise noted. Please see nursing chart for further information. There is no relevant family history pertinent to the presenting complaint Exam Narrative: GENERAL: Well-appearing, well-nourished, and in no acute distress. HEAD: Normocephalic, atraumatic. EYES: EOMI. No redness or drainage. Conjunctivae normal. ENT: Mucous membranes pink and moist. NECK: Normal AROM. CHEST: No respiratory distress. Clear to auscultation. HEART: Regular rate and rhythm. No murmur appreciated. Normal peripheral pulses. ABDOMEN: Soft, nontender, nondistended, normal active bowel sounds. -CVAT EXTREMITIES: Normal range of motion. No edema. SKIN: Warm, dry, no rash. Capillary refill normal. Normal skin turgor. NEURO: No focal deficits. Alert and oriented x3. Gait steady. PSYCH: Normal affect. No signs of depression or anxiety. Course Course Level of Care: Express Care Visit Vital Signs Vital signs: Vital Signs Temperature 97.6 F 03/16/24 14:21 Pulse Rate 70 03/16/24 14:21 Respiratory Rate 14 03/16/24 14:21 Blood Pressure 87/52 L 03/16/24 14:21 Pulse Oximetry 100 03/16/24 14:21 Oxygen Delivery Room Air 03/16/24 14:21 Temperature 97.6 F 03/16/24 14:21 Pulse Rate 70 03/16/24 14:21 Respiratory Rate 14 03/16/24 14:21 Blood Pressure 87/52 L 03/16/24 14:21 Pulse Oximetry 100 03/16/24 14:21 Oxygen Delivery Room Air 03/16/24 14:21 Reviewed MDM - Female Genitourinary MDM Narrative Medical decision making narrative: Urinalysis is consistent with UTI. Prescription for Augmentin sent to pharmacy. Culture pending. Anticipatory guidance given. Differential Diagnosis Differential diagnosis: Likely urinary tract infection, vaginitis and cystitis Lab Data Attestation: I reviewed the patient's lab results. Labs: Urine Glucose Negative Reference Range: Negative Ur
== END 2024-03-16 15:00 | disposition home or self-care (01) ==
PROVIDERS: Emergency Provider Nurse Practitioner; PCP Emergency Medicine
DX: N30.01 Acute cystitis with hematuria (principal); B96.20 Unspecified Escherichia coli [E. coli] as the cause of diseases classified elsewhere; F17.210 Nicotine dependence, cigarettes, uncomplicated
CPT/HCPCS: 81003; 87077; 87086; 87088; 87186; 99213; G0463

== ENCOUNTER 2024-05-11 21:26 | Emergency (ER) | payer BC, OTHER, SELFPAY ==
[2024-05-11 21:30] VITALS: BP 107/65; PULSE 91; RESP 17; TEMP 37.1; O2SAT 98
[2024-05-11 23:46] VITALS: BP 119/69; PULSE 72; RESP 16; TEMP 36.8; O2SAT 100
[2024-05-11 23:47] VITALS: RESP 16; O2SAT 100
[2024-05-12 00:25] LABS: Influenza A QL RT-PCR Positive (Negative); Influenza B QL RT-PCR Negative (Negative); RSV RNA, RT-PCR Negative (Negative); SARS-CoV-2 RNA PCR Negative (Negative)
--- NOTE | 2024-05-12 00:38 | ED.GENADULT ---
HPI - General Adult General Chief complaint: Unspecified Stated complaint: N/V BODY ACHES,COUGH Time Seen by Provider: 05/11/24 23:55 History of Present Illness HPI narrative: 30-year-old female presents to the emergency department for cough, congestion, body aches, headache, nausea and vomiting that started yesterday. Patient states her son has been sick with similar symptoms. She denies focal abdominal pain, known fever, diarrhea, sore throat or otalgia. States she has been taking TheraFlu [id number]. Denies possibility of . Related Data Allergies Allergy/AdvReac Type Severity Reaction Status Date / Time No Known Allergies Allergy Verified 03/16/24 14:22 Review of Systems Review of Systems: All systems reviewed & are unremarkable except as noted in HPI and below PMFSH Past Medical History Medical History Anxiety Post- depression Surgical History Surgical History H/O tubal ligation Social History Social History Smoking packs per day: 0.5 Smoking cigarettes per day: 10.0 Smoking status: Current every day smoker Substance use: current Substance use type: marijuana Gender identity (if verbalized by the patient): Female Exam Narrative: GENERAL: Ill appearing, in no acute distress HEAD: Normocephalic, atraumatic. EYES: PERRLA and EOMI. ENT: Nares clear, no rhinorrhea or epistaxis. Mucous membranes moist. bilateral TMs are lopez nonbulging with normal canals. Pharynx without erythema or edema. No tonsillar hypertrophy or exudates. Uvula is midline. NECK: Supple. CHEST: Clear to auscultation. No respiratory distress. HEART: Regular rate and rhythm. No murmur heard. Normal peripheral pulses. ABDOMEN: Soft, nontender, nondistended, normal active bowel sounds. EXTREMITIES: Normal range of motion. No edema. SKIN: Warm, dry, no rash. NEURO: No focal deficits. Alert and oriented x3 Course Vital Signs Vital signs: Vital Signs Temperature 98.7 F 05/11/24 21:30 Pulse Rate 91 05/11/24 21:30 Respiratory Rate 17 05/11/24 21:30 Blood Pressure 107/65 05/11/24 21:30 Pulse Oximetry 98 05/11/24 21:30 Temperature 98.2 F 05/11/24 23:46 Pulse Rate 72 05/11/24 23:46 Respiratory Rate 16 05/11/24 23:47 Blood Pressure 119/69 05/11/24 23:46 Pulse Oximetry 100 05/11/24 23:47 Medical Decision Making MDM Narrative Medical decision making narrative: 38-year-old female presents to emergency department for cough, congestion, body aches, generalized malaise, nausea and vomiting for 1 day. She has been exposed to her son with similar symptoms. Triage vitals are stable. Patient is well-appearing on exam. Lung sounds are clear. Abdomen is soft and nontender. She did test positive for influenza A. I offered to obtain lab work and provide IV fluids, however patient politely declined states she would like to go home to rest. She is given p.o. Tylenol and ODT Zofran in the ED. Tamiflu and Zofran sent to pharmacy. Encouraged Tylenol and ibuprofen as needed for body aches and fever, increased fluid intake and rest. I discussed strict ED return precautions. She is agreeable to plan and verbalized understanding. Discharged in stable condition. Vital Signs Vital Signs: Vital Signs Temperature 98.7 F 05/11/24 21:30 Pulse Rate 91 05/11/24 21:30 Respiratory Rate 17 05/11/24 21:30 Blood Pressure 107/65 05/11/24 21:30 Pulse Oximetry 98 05/11/24 21:30 Temperature 98.2 F 05/11/24 23:46 Pulse Rate 72 05/11/24 23:46 Respiratory Rate 16 05/11/24 23:47 Blood Pressure 119/69 05/11/24 23:46 Pulse Oximetry 100 05/11/24 23:47 Lab Data Labs: Lab Results 05/11/24 Range/Units 23:44 Influenza A (RT-PCR) Positive A (Negative) Influenza
[2024-05-12] MEDS: ACETAMINOPHEN 500 MG TABLET 1000 MG PO (00:54)
[2024-05-12] MEDS: ONDANSETRON HCL ODT 4 MG TABLET PO (00:54)
== END 2024-05-12 00:56 | disposition home or self-care (01) ==
PROVIDERS: Emergency Medicine; Emergency Provider Physician Assistant; PCP Emergency Medicine
DX: J10.1 Influenza due to other identified influenza virus with other respiratory manifestations (principal); F17.210 Nicotine dependence, cigarettes, uncomplicated; Z20.822 Contact with and (suspected) exposure to COVID-19
CPT/HCPCS: 87637; 99283; A9270

== ENCOUNTER 2024-08-03 18:35 | Emergency (ER) | payer BC, OTHER, SELFPAY ==
[2024-08-03 18:42] VITALS: BP 113/65; PULSE 67; RESP 20; TEMP 37.1; O2SAT 100
--- NOTE | 2024-08-03 18:49 | ED.FEMALEGU ---
HPI - Female Genitourinary General Chief complaint: Urogenital-Female Stated complaint: UTI Time Seen by Provider: 08/03/24 18:38 Source: patient Mode of arrival: ambulatory Limitations: no limitations History of Present Illness HPI Narrative: Liliana is a 38-year-old female patient presenting to the clinic today with complaints of possible urinary tract infection. She reports her symptoms started 1-2 days ago. Is having some lower abdominal discomfort with burning, frequency, and urgency with urination. Denies any fever or chills. She denies any back pain. Denies any vaginal discharge Related Data Allergies Allergy/AdvReac Type Severity Reaction Status Date / Time No Known Allergies Allergy Verified 08/03/24 18:38 Review of Systems Review of Systems: Pertinent positives per HPI. Patient denies any fever, chills, rash, headache, visual changes, dizziness, cough, runny nose, sore throat, shortness of breath, chest pain, palpitations, nausea, vomiting, diarrhea, constipation, abdominal pain. [facility] Past Medical History Medical History Anxiety Post- depression Surgical History Surgical History H/O tubal ligation Social History Social History Smoking packs per day: 0.5 Smoking cigarettes per day: 10.0 Smoking status: Current every day smoker Substance use: current Substance use type: marijuana Gender identity (if verbalized by the patient): Female Comments At the time of my signature, I reviewed and agree with the nursing past medical, surgical, social, and family history. There is no relevant family history pertinent to the patient complaint. Exam Narrative: General: Well-developed, well nourished, in no apparent distress. Head: Normocephalic, atraumatic. Cardio: Regular rate and rhythm, s1 and s2 normal, no murmur appreciated. Resp: Clear to auscultation bilaterally, no rhonchi, rales, wheezing or rubs. Abdomen: Soft, pliable, bowel sounds present in all quadrants, tender to palpation over the lower abdomen, no organomegly, no CVAT tenderness. Course Course Emergency Course: Portions of this record may have been created with voice recognition software. Level of Care: Express Care Visit Vital Signs Vital signs: Vital Signs Temperature 37.1 C 08/03/24 18:42 Pulse Rate 67 08/03/24 18:42 Respiratory Rate 20 08/03/24 18:42 Blood Pressure 113/65 08/03/24 18:42 Pulse Oximetry 100 08/03/24 18:42 Oxygen Delivery Room Air 08/03/24 18:42 Temperature 37.1 C 08/03/24 18:42 Pulse Rate 67 08/03/24 18:42 Respiratory Rate 20 08/03/24 18:42 Blood Pressure 113/65 08/03/24 18:42 Pulse Oximetry 100 08/03/24 18:42 Oxygen Delivery Room Air 08/03/24 18:42 Vital signs reviewed MDM - Female Genitourinary MDM Narrative Medical decision making narrative: At the time of visit patient is resting comfortably on the exam table. Patient appears to be nontoxic. Labs: Urinalysis positive for 2+ leukocytes, trace of blood and trace protein. We will send urine for culture. Plan: I reviewed patient's last to urine cultures-cultures grew E coli with resistance to many antibiotics. Will place the patient on ciprofloxacin that was susceptible as well as put her on Diflucan for a vaginal yeast infection as needed. Supportive measures were discussed with the patient and they voiced understanding discharge instructions and agrees to treatment plan. Return precautions reviewed Differential Diagnosis Differential diagnosis: Likely urinary tract infection, bacterial vaginosis, trichomoniasis, cervicitis, ovarian cyst, vaginitis, ruptured ovarian cyst, cyst of Bartholin's gland, cystitis and dysmenorrhea Lab Data Labs: Lab Results 08/03/24 Range/Units 18:48 POC Urine Color Yellow POC Urine Clarity Cloudy POC Urine pH 6.5 POC Ur Specif [place] 1.025 POC Urine Protein Trace (Negative) POC Ur Glucose (UA) Negative (Negative) POC Urine Ketones Negative (Negative) POC Urine Blood Trace (Negative) POC Urine Nitrite Negative (Negative) POC Urine Bilirubin Negative (Negative) POC Urine Urobilinogen 0.2 POC U Leukocyte Esteras 2+ (Negative) Discharge Plan Discharge Clinical Impression: Urinary tract infection Patient Disposition: Home, Self-Care Condition: Stable Instructions: Antibiotic Form, Urinary Tract Infection in Women (ED) Additional Instructions: Urinalysis is positive for bacteria, blood, and protein. We will send urine for culture Take ciprofloxacin and Diflucan as prescribed Increase fluids and stay well hydrated Wipe front to back. May use wet wipes. Avoid tub baths If sexually active- pee before and after intercourse. Wear cotton panties Avoid tight clothing up against the genitals Follow up with your PCP in 1 week if symptoms persist. Prescriptions: New ciprofloxacin HCl [Cipro] 500 mg tablet 500 mg PO Q12H 7 Days Qty: 14 0RF fluconazole 150 mg tablet 150 mg PO ONCE Qty: 2 0RF Rx Instructions: as a single dose. May repeat in 72 hours if needed. Follow-up/Referrals: Sage Thorpe MD [Primary Care Provider] - Time of Disposition: 18:57 Quality NIHSS Nursing Documentation ED NIHSS nursing documentation: reviewed/agree
[2024-08-03 18:51] LABS: EDUAAPPEAR Cloudy; EDUABILI Negative (Negative); EDUABLOOD Trace (Negative); EDUACOLOR1 Yellow; EDUAGLUCOSE Negative (Negative); EDUAKETONE Negative (Negative); EDUALEUKO 2+ (Negative); EDUANITRATE Negative (Negative); EDUAPH 6.5; EDUAPROTEIN Trace (Negative); EDUASPGRAVITY 1.025; EDUAUROBILI 0.2
== END 2024-08-03 19:00 | disposition home or self-care (01) ==
PROVIDERS: Emergency Provider Nurse Practitioner Family; PCP Emergency Medicine
DX: N39.0 Urinary tract infection, site not specified (principal); B96.20 Unspecified Escherichia coli [E. coli] as the cause of diseases classified elsewhere; F17.210 Nicotine dependence, cigarettes, uncomplicated
CPT/HCPCS: 81003; 87077; 87086; 87186; 99213; G0463

== ENCOUNTER → 2024-09-06 11:42 | Outpatient (CLI) | payer BC, OTHER, SELFPAY ==
--- NOTE | ~2024-09-06 | XR_ITS ---
Right Shoulder Technique: AP and scapular Y views were obtained. Clinical History: Pain Findings: No fracture or dislocation is seen. Osseous alignment is anatomic. The glenohumeral and acr omioclavicular joint spaces are preserved. Soft tissues are unremarkable. Impression: Unremarkable right shoulder radiographs. Reviewed, dictated and finalized at [facility]. SFORMER TESTER Impression: Unremarkable right shoulder radiographs.
--- NOTE | ~2024-09-06 | XR_ITS ---
Left Shoulder Technique: AP and scapular Y views were obtained. Clinical History: Pain Findings: No fracture or dislocation is seen. Osseous alignment is anatomic. The glenohumeral and acr omioclavicular joint spaces are preserved. Soft tissues are unremarkable. Impression: Unremarkable left shoulder radiographs. Reviewed, dictated and finalized at [facility]. O SCRIPT WRITER Impression: Unremarkable left shoulder radiographs.
== END ==
LOC: EXPCRAD 11:46
PROVIDERS: PCP Emergency Medicine; Visit Provider Emergency Medicine
DX: M25.512 Pain in left shoulder (principal); M25.511 Pain in right shoulder
CPT/HCPCS: 73030

== ENCOUNTER 2024-09-23 13:13 | Emergency (ER) | payer BC, OTHER, SELFPAY ==
[2024-09-23 13:22] VITALS: BP 119/61; PULSE 105; RESP 16; TEMP 37.3; O2SAT 99
== END 2024-09-23 13:22 | disposition left against medical advice (07) ==
PROVIDERS: PCP Emergency Medicine
DX: Z53.21 Procedure and treatment not carried out due to patient leaving prior to being seen by health care provider (principal)
CPT/HCPCS: 99199

== ENCOUNTER 2025-04-11 16:42 | Emergency (ER) | payer BC, OTHER, SELFPAY ==
[2025-04-11 16:55] VITALS: BP 112/74; PULSE 84; RESP 14; TEMP 36.9; O2SAT 99
[2025-04-11 16:59] LABS: EDUAAPPEAR Cloudy; EDUABILI Negative (Negative); EDUABLOOD 2+ (Negative); EDUACOLOR1 Yellow; EDUAGLUCOSE Negative (Negative); EDUAKETONE Negative (Negative); EDUALEUKO 3+ (Negative); EDUANITRATE Negative (Negative); EDUAPH 6.5; EDUAPROTEIN Negative (Negative); EDUASPGRAVITY 1.010; EDUAUROBILI 0.2
--- NOTE | 2025-04-11 17:12 | ED_ITS ---
HPI - Female Genitourinary General Chief complaint: Urogenital-Female Stated complaint: Urinary Irritation Time Seen by Provider: 04/11/25 17:13 Source: patient and RN notes reviewed Mode of arrival: ambulatory Limitations: no limitations History of Present Illness HPI Narrative: 39 y/o female presented for c/o urinary frequency, urgency and incomplete bladder emptying. Onset this morning. denies hematuria, nausea, vomiting, abdominal pain, flank pain, constipation, diarrhea, fevers or chills. LMP 30. Denies concern for or STD. Related Data Allergies Allergy/AdvReac Type Severity Reaction Status Date / Time No Known Allergies Allergy Verified 04/11/25 17:15 Review of Systems Review of Systems: CONSTITUTIONAL: Denies body aches, fever, chills, or sweats. CARDIOVASCULAR: Denies chest pain, palpitations, or edema. RESPIRATORY: Denies cough or dyspnea. GASTROINTESTINAL: Denies abdominal pain, nausea, vomiting, or diarrhea. GENITOURINARY: Reports frequency, urgency, denies dysuria, hematuria, flank pain, discharge SKIN: Denies rash, itching, or wounds. MUSCULOSKELETAL: Denies back pain or myalgia. [facility] Past Medical History Medical History Anxiety Post- depression Surgical History Surgical History H/O tubal ligation Social History Social History Smoking packs per day: 0.5 Smoking cigarettes per day: 10.0 Smoking status: Current every day smoker Substance use: current Substance use type: marijuana Gender identity (if verbalized by the patient): Female Comments At time of signature, I have reviewed and agree with nursing past medical, surgical, social and family history unless otherwise noted. Please see nursing chart for further information. There is no relevant family history pertinent to the presenting complaint Exam Narrative: GENERAL: Well-appearing and in no acute distress. ENT: Mucous membranes pink and moist. NECK: Normal AROM. Supple. CHEST: No respiratory distress. Clear to auscultation. HEART: Regular rate and rhythm. ABDOMEN: Soft, nontender, nondistended, normal active bowel sounds. No CVA tenderness SKIN: Warm, dry, no rash. NEURO: No focal deficits. Alert and oriented x3. Gait steady. PSYCH: Normal affect. Course Course Emergency Course: Patient is aware of diagnosis, understands and agrees to treatment plan. Anticipatory guidance given. Patient agrees to follow-up as directed and is aware of reasons to seek care at the emergency department. Portions of this record may have been created with voice recognition software Level of Care: Express Care Visit Vital Signs Vital signs: Vital Signs Temperature 98.5 F 04/11/25 16:55 Pulse Rate 84 04/11/25 16:55 Respiratory Rate 14 04/11/25 16:55 Blood Pressure 112/74 04/11/25 16:55 Pulse Oximetry 99 04/11/25 16:55 Oxygen Delivery Room Air 04/11/25 16:55 Temperature 98.5 F 04/11/25 16:55 Pulse Rate 84 04/11/25 16:55 Respiratory Rate 14 04/11/25 16:55 Blood Pressure 112/74 04/11/25 16:55 Pulse Oximetry 99 04/11/25 16:55 Oxygen Delivery Room Air 04/11/25 16:55 Reviewed MDM - Female Genitourinary MDM Narrative Medical decision making narrative: Discussed physical exam findings and urine dip. 3+ Leuk 2+ blood. Shared decision making, RX abx, reviewed prescription. Advised supportive measures and signs/symptoms to go to the ER. Pt is appropriate for outpt treatment and f/u. Differential Diagnosis Differential diagnosis: Likely urinary tract infection, bacterial vaginosis, vaginitis, cystitis and other Lab Data Labs: Lab Results 04/11/25 Range/Units 16:56 POC Urine Color Yellow POC Urine Clarity Cloudy POC Urine pH 6.5 POC Ur Specif [place] 1.010 POC Urine Protein Negative (Negative) POC Ur Glucose (UA) Negative (Negative) POC Urine Ketones Negative (Negative) POC Urine Blood 2+ (Negative) POC Urine Nitrite Negative (Negative) POC Urine Bilirubin Negative (Negative) POC Urine Urobilinogen 0.2 POC U Leukocyte Esteras 3+ (Negative) Discharge Plan Discharge Clinical Impression: Urinary tract infection Patient Disposition: Home Condition: Stable Instructions: Antibiotic Form, Urinary Tract Infection in Women (ED) Additional Instructions: Take the antibiotic as prescribed The urine will be sent of for a culture to identify what type of bacteria is causing your infection. If the culture shows that the antibiotic will not get rid of your infection, you will be notified and a new antibiotic will be called in for you. Increase water intake you will need to follow up with your PCP, call to schedule an appointment. Go to the ER for any worsening symptoms or concerns Patient Language: Ethiopian Prescriptions: New nitrofurantoin monohyd/m-cryst [Macrobid] 100 mg capsule 100 mg PO Q12H 5 Days Qty: 10 0RF Rx Instructions: must administer with a meal/food fluconazole 150 mg tablet 150 mg PO DAILY Qty: 2 0RF Follow-up/Referrals: Sage Thorpe MD [Primary Care Provider] - Time of Disposition: 17:24
== END 2025-04-11 17:35 | disposition home or self-care (01) ==
PROVIDERS: Emergency Provider Nurse Practitioner Family; PCP Emergency Medicine
DX: N39.0 Urinary tract infection, site not specified (principal); F17.210 Nicotine dependence, cigarettes, uncomplicated
CPT/HCPCS: 81003; 99213; G0463